=== PATIENT | male | born 2000 | race Caucasian/White ===

== ENCOUNTER 2020-12-10 15:03 | Emergency (ER) | payer OTHER ==
[~2020-12-10] VITALS: Ht 175.3 cm; Wt 75.0 kg
[2020-12-10 15:04] VITALS: BP 155/88
[2020-12-10] MEDS ORDERED: AZIT-12 PO (16:07)
== END 2020-12-10 16:15 | disposition home or self-care (01) ==
LOC: M ED 15:03 → EDSEX 15:03 → M ED 16:15
DX: H65.191 Other acute nonsuppurative otitis media, right ear (principal)

== ENCOUNTER 2021-03-20 09:56 | Day surgery (SDC) | payer OTHER ==
[~2021-03-20] VITALS: Ht 177.8 cm; Wt 73.5 kg
[~2021-03-20 09:56] MED LIST: AZIT-12 PO; LIDOCAINE 1% MDV 20ML VIAL SQ PRN; LR 1,000 ML IV ONE; dexameTHASONE 4 MG/ML 1ML VIAL (J1100 PER 1MG) IV ONE
[2021-03-20] MEDS ORDERED: MIDAZOLAM INJ 2MG/2ML VIAL (J2250 PER 1MG) As Ordered ONE (12:46)
[2021-03-20] MEDS ORDERED: fentaNYL 100 MCG/2 ML INJECTION (J3010) As Ordered ONE (12:46)
[2021-03-20] MEDS ORDERED: ONDANSETRON 4MG/2ML VIAL As Ordered ONE (12:46)
[2021-03-20] MEDS ORDERED: propofoL 200 MG/20 ML VIAL As Ordered ONE (12:46)
[2021-03-20] MEDS ORDERED: METOCLOPRAMIDE INJ 10MG/2ML VIAL (J2765 PER 1) As Ordered ONE (12:46)
[2021-03-20] MEDS ORDERED: LIDOCAINE 2% 100MG/5ML SDV (FOR ANES.) As Ordered ONE (12:46)
[2021-03-20] MEDS ORDERED: ROCURONIUM BROMIDE 50 MG/5 ML VIAL As Ordered ONE (12:46)
[2021-03-20] MEDS ORDERED: dexameTHASONE 4 MG/ML 1ML VIAL (J1100 PER 1MG) As Ordered ONE (12:47)
[2021-03-20] MEDS ORDERED: SUGAMMADEX SODIUM 500 MG/5 ML VIAL (BRIDION) As Ordered ONE (13:24)
[2021-03-20] MEDS ORDERED: fentaNYL 100 MCG/2 ML INJECTION (J3010) IV PRN (14:00)
[2021-03-20] MEDS ORDERED: HYDROMORPHONE HCL 0.5 MG/ 0.5 ML SYRINGE (J1170 PER 1) IV PRN (14:00)
[2021-03-20] MEDS ORDERED: LR 1,000 ML IV SCH ×2 (14:00→14:05)
[2021-03-20] MEDS ORDERED: ONDANSETRON 4MG/2ML VIAL IV PRN (14:00)
[2021-03-20] MEDS ORDERED: oxyCODONE 5MG TAB PO PRN (14:00)
[2021-03-20 14:35] VITALS: BP 138/84
--- NOTE | 2021-03-20 17:04 | RO ---
OPERATIVE NOTE DATE OF OPERATION: 03/20/2021 PREOPERATIVE DIAGNOSIS: Adenoid hypertrophy and eustachian tube dysfunction. POSTOPERATIVE DIAGNOSIS: Adenoid hypertrophy and eustachian tube dysfunction. PROCEDURE PERFORMED: Adenoidectomy. SURGEON: John Davila MD ANESTHESIA: General. CLINICAL PREAMBLE: This is a 20-year-old man presented to the office with a history of chronic bilateral oral fullness. He failed to respond to medical therapy. Nasal endoscopy revealed evidence of adenoid hypertrophy. Management options including the surgery listed above have been discussed. The patient understood and consented to the procedure room. DESCRIPTION OF PROCEDURE: Attention was then turned to performing the revision adenoidectomy. The Lacho-Anthony mouth gag was inserted and suspended. The red rubber catheter was inserted via the right naris to retract the soft palate using a mirror. The hypertropic adenoid tissue was ablated. Hemostasis was achieved. At the end of the procedure, sponge and instrument counts were correct. No complication was encountered. Estimated blood loss was less than 10 mL. General anesthesia was reversed and patient was extubated and brought to the recovery room in stable condition.
== END 2021-03-20 14:38 | disposition home or self-care (01) ==
LOC: M SDC 09:56
PROVIDERS: ATTEND Otolaryngology
DX: J35.2 Hypertrophy of adenoids (principal); H69.93 Unspecified Eustachian tube disorder, bilateral; R06.83 Snoring; Z88.0 Allergy status to penicillin
CPT/HCPCS: 42836; J1100; J2250; J2405; J2765; J3010